=== PATIENT | male | born 1995 | race African-American/Black ===

== ENCOUNTER 2025-06-09 06:48 | Emergency (ER) | payer BC ==
[2025-06-09] MEDS ORDERED: Ibuprofen 200 MG TAB ONE (07:26)
[2025-06-09] MEDS ORDERED: Acetaminophen 500 MG TAB ONE (07:26)
== END 2025-06-09 08:11 | disposition home or self-care (01) ==
LOC: ERS 06:48
DX: B34.9 Viral infection, unspecified (principal)
CPT/HCPCS: 87428; 99283